=== PATIENT | male | born 2000 | race Caucasian/White ===

== ENCOUNTER 2024-03-18 15:36 | Inpatient (IN) | payer BC ==
[~2024-03-18] VITALS: Ht 177.8 cm; Wt 87.5 kg
[2024-03-18] MEDS ORDERED: MAG HYDROX/ALUMINUM HYD/SIMETH ES 30 ML SUSPENSION UDCUP PO PRN (16:30)
[2024-03-18] MEDS ORDERED: LOPERAMIDE HCL 2 MG CAPSULE PO PRN (16:30)
[2024-03-18] MEDS ORDERED: ACETAMINOPHEN 325 MG TABLET PO PRN (16:30)
[2024-03-18] MEDS ORDERED: MAGNESIUM HYDROXIDE SUSPENSION 30 ML UDCUP PO PRN (16:30)
[2024-03-18] MEDS ORDERED: HALOPERIDOL 5 MG TABLET PO PRN (16:30)
[2024-03-18 17:45] VITALS: BP 142/88; PULSE 79; RESP 18; TEMP 97.6; O2SAT 97
[2024-03-19 04:57] VITALS: BP 132/78; PULSE 82; RESP 18; TEMP 97.4; O2SAT 100
[2024-03-19 08:10] VITALS: BP 129/86; PULSE 90; RESP 16; TEMP 97.6; O2SAT 100
[2024-03-19] MEDS ORDERED: NICOTINE 14 MG/24 HOUR PATCH TD PRN (10:15)
[2024-03-19] MEDS ORDERED: ACETAMINOPHEN 325 MG TABLET PO PRN (10:15)
[2024-03-19] MEDS ORDERED: DOCUSATE SODIUM 100 MG CAPSULE PO PRN (10:15)
[2024-03-19] MEDS ORDERED: ONDANSETRON 4 MG TABLET PO PRN (10:15)
[2024-03-19] MEDS ORDERED: MAGNESIUM HYDROXIDE SUSPENSION 30 ML UDCUP PO PRN (10:15)
[2024-03-19] MEDS ORDERED: LOPERAMIDE HCL 2 MG CAPSULE PO PRN (10:15)
[2024-03-19] MEDS ORDERED: MAG HYDROX/ALUMINUM HYD/SIMETH ES 30 ML SUSPENSION UDCUP PO PRN (10:15)
[2024-03-19] MEDS ORDERED: IBUPROFEN 400 MG TABLET PO PRN (10:15)
[2024-03-19] MEDS ORDERED: ALBUTEROL SULFATE HFA 90 MCG/PUFF 8 GM INHALER IH PRN (10:15)
[2024-03-19] MEDS ORDERED: PETROLATUM,WHITE 28 GM JELLY TP PRN (10:15)
[2024-03-19] MEDS ORDERED: GuaiFENesin/D-METHORPHAN [SUGAR-FREE] 200-20MG/10 ML SYRUP UDCUP PO PRN (10:15)
[2024-03-19] MEDS ORDERED: CloNIDine HCL 0.1 MG TABLET PO PRN (10:15)
[2024-03-19] MEDS ORDERED: SERT-439 PO (12:13)
[2024-03-19] MEDS: QUEtiapine FUMARATE 100 MG TABLET PO SCH (20:26)
[2024-03-19 20:56] VITALS: BP 138/88; PULSE 85; RESP 18; TEMP 98; O2SAT 99
[2024-03-20 08:24] VITALS: BP 122/66; PULSE 95; RESP 18; TEMP 97.5; O2SAT 96
[2024-03-20 08:55] LABS: BASOPHILS % (AUTO) 0.9 % (0.0-2.0); EOSINOPHILS % (AUTO) 2.7 % (1.0-6.0); HEMATOCRIT 47.9 % (41-53); HEMOGLOBIN 16.1 g/dL (13.5-17.5); LYMPHOCYTES # (AUTO) 2.2 K/uL (1.0-4.8); LYMPHOCYTES % (AUTO) 34.2 % (22.0-44.0); MEAN CORPUSCULAR HEMOGLOBIN 31.6 pg (26.0-34.0); MEAN CORPUSCULAR HGB CONC 33.6 G/dL (31.0-37.0); MEAN CORPUSCULAR VOLUME 94 fL (80-100); MONOCYTES # (AUTO) 0.5 K/uL (0.1-1.0); NEUTROPHILS # (AUTO) 3.5 K/uL (1.8-7.7); NEUTROPHILS % (AUTO) 54.2 % (40.0-70.0); PLATELET COUNT (AUTO) 286 K/uL (150-450); RED BLOOD CELL COUNT(AUTO) 5.09 MIL/uL (4.50-5.90); RED CELL DISTRIBUTION WIDTH 12.4 % (11.5-14.5); WHITE BLOOD COUNT (AUTO) 6.5 K/uL (4.5-11.0)
[2024-03-20 09:09] LABS: HEMOGLOBIN A1C 5.2 % (3.8-5.6)
[2024-03-20 09:24] LABS: APPEARANCE,URINE TURBID (CLEAR); BILIRUBIN,URINE NEGATIVE (NEGATIVE); COLOR,URINE YELLOW (YELLOW); GLUCOSE, URINE (UA) NEGATIVE (NEGATIVE); KETONES,URINE NEGATIVE (NEGATIVE); LEUKOCYTE ESTERASE ,URINE NEGATIVE (NEGATIVE); NITRATE,URINE NEGATIVE (NEGATIVE); OCCULT BLOOD,URINE NEGATIVE (NEGATIVE); PH,URINE 7.5 (5.0-8.0); PH,URINE DRUG SCREEN 7.5 (5.0-8.0); PROTEIN,URINE TRACE mg/dL (NEGATIVE); SPECIFIC GRAVITIY, URINE 1.023 (1.003-1.030)
[2024-03-20 09:45] LABS: THYROID STIMULATING HORMONE 2.57 uIU/mL (0.36-3.74)
[2024-03-20 09:56] LABS: ALCOHOL, URINE DRUG SCREEN NEGATIVE (NEGATIVE); AMPHET/METH SCREEN,URINE NEGATIVE (NEGATIVE); BARBITURATE SCREEN, URINE NEGATIVE (NEGATIVE); BENZODIAZEPINES SCREEN,URINE NEGATIVE (NEGATIVE); CANNABINOID SCREEN,URINE NEGATIVE (NEGATIVE); COCAINE SCREEN,URINE NEGATIVE (NEGATIVE); METHADONE SCREEN, URINE NEGATIVE (NEGATIVE); OPIATE SCREEN,URINE NEGATIVE (NEGATIVE); PHENCYCLIDINE SCREEN,URINE NEGATIVE (NEGATIVE)
[2024-03-20] MEDS: SERTRALINE HCL 50 MG TABLET PO SCH (11:00)
[2024-03-20 11:56] LABS: CHOL/HDL RATIO 3.3 (4.2-7.3)
[2024-03-20 21:05] VITALS: BP 138/79; PULSE 76; RESP 18; TEMP 97.7; O2SAT 97
[2024-03-21] MEDS: ZOLPIDEM TARTRATE 10 MG TABLET PO PRN (00:55)
[2024-03-21] MEDS: LORazepam 2 MG TABLET PO PRN (00:55)
[2024-03-21 08:13] VITALS: BP 117/67; PULSE 98; RESP 16; TEMP 97.3; O2SAT 96
[2024-03-21] MEDS ORDERED: QUET100T34 PO (09:54)
[2024-03-21] MEDS ORDERED: SERT-439 PO (09:54)
[2024-03-21] MEDS ORDERED: INFLUENZA VIRUS VACCINE TVS (6MO+) 2024-25/PF 45 MCG/0.5 ML SYRINGE IM. ONE (11:30)
== END 2024-03-21 13:46 | disposition home or self-care (01) | DRG 885 ==
LOC: B2S 19:35 → UNDOADMIN 19:35 → B2S 03-19 04:36 → B2X 03-20 16:15
PROVIDERS: ADMIT Psychiatry & Neurology Psychiatry; ATTEND Psychiatry & Neurology Psychiatry
PROC: GZHZZZZ Group Psychotherapy (ICD-10-PCS; principal; 2024-03-19)
DX: F33.2 Major depressive disorder, recurrent severe without psychotic features (principal); R45.851 Suicidal ideations; F90.9 Attention-deficit hyperactivity disorder, unspecified type; F25.9 Schizoaffective disorder, unspecified; F19.959 Other psychoactive substance use, unspecified with psychoactive substance-induced psychotic disorder, unspecified; F41.9 Anxiety disorder, unspecified; G47.00 Insomnia, unspecified; F10.90 Alcohol use, unspecified, uncomplicated; Y90.9 Presence of alcohol in blood, level not specified; Z79.899 Other long term (current) drug therapy; Z87.820 Personal history of traumatic brain injury
CPT/HCPCS: 70450; 80061; 80307; 81003; 83036; 84443; 85025

== ENCOUNTER 2024-03-18 21:29 | Emergency (ER) | payer BC ==
[~2024-03-18] VITALS: Ht 177.8 cm; Wt 68.2 kg
[2024-03-18 23:29] VITALS: TEMP 98.6
[2024-03-19 00:54] LABS: COVID AG,FIA SOURCE NASAL SWAB
[2024-03-19 01:02] LABS: SARS-COV2 (COVID) ANTIGEN,FIA Negative (Negative)
[2024-03-19 01:05] LABS: BASOPHILS % (AUTO) 0.6 % (0.0-2.0); EOSINOPHILS % (AUTO) 1.8 % (1.0-6.0); HEMOGLOBIN 16.2 g/dL (13.5-17.5); LYMPHOCYTES % (AUTO) 26.4 % (22.0-44.0); MEAN CORPUSCULAR HEMOGLOBIN 32.2 pg (26.0-34.0); MEAN CORPUSCULAR HGB CONC 34.5 G/dL (31.0-37.0); MEAN CORPUSCULAR VOLUME 93 fL (80-100); MONOCYTES # (AUTO) 0.6 K/uL (0.1-1.0); MONOCYTES % (AUTO) 8.3 % (2.0-9.0); NEUTROPHILS # (AUTO) 4.8 K/uL (1.8-7.7); NEUTROPHILS % (AUTO) 62.9 % (40.0-70.0); PLATELET COUNT (AUTO) 308 K/uL (150-450); RED BLOOD CELL COUNT(AUTO) 5.04 MIL/uL (4.50-5.90); RED CELL DISTRIBUTION WIDTH 12.3 % (11.5-14.5); WHITE BLOOD COUNT (AUTO) 7.7 K/uL (4.5-11.0)
[2024-03-19 01:14] LABS: ANION GAP 8 mmol/L (8-16); CALCIUM, TOTAL 9.6 mg/dL (8.8-10.5); CARBON DIOXIDE 31 mmol/L (22-29); CHLORIDE 102 mmol/L (98-107); GLOMERULAR FILTR. RATE CALC > 60 mL/min (>60); GLUCOSE,RANDOM 100 mg/dL (70-110); POTASSIUM 4.5 mmol/L (3.5-5.1); SODIUM SERUM 141 mmol/L (136-145); UREA NITROGEN, BLOOD 21 mg/dL (7-18)
[2024-03-19 01:25] LABS: ALCOHOL, BLOOD (SERUM) < 3 mg/dL (0-10)
[2024-03-19] MEDS ORDERED: LORazepam 1 MG TABLET ONE (02:17)
[2024-03-19] MEDS: LORazepam 1 MG TABLET PO ONE (02:23)
[2024-03-19 05:55] VITALS: BP 109/76; PULSE 77; RESP 16; O2SAT 99
[2024-03-19 06:12] LABS: ALANINE AMINOTRANSFERASE 34 U/L (12-78); ALBUMIN 4.5 g/dL (3.4-5.0); ALKALINE PHOSPHATASE 109 U/L (46-116); ASPARTATE AMINOTRANSFERASE 18 U/L (15-37); BILIRUBIN,TOTAL 0.5 mg/dL (0.1-1.0); CHOL/HDL RATIO 3.2 (4.2-7.3); CHOLESTEROL 146 mg/dL (131-200); HDL CHOLESTEROL 46 mg/dL (40-60); LDL CHOL (CALC.) 82 mg/dL (0-130); THYROID STIMULATING HORMONE 1.99 uIU/mL (0.36-3.74); TOTAL PROTEIN, SERUM 7.8 g/dL (6.4-8.2); TRIGLYCERIDES 89 mg/dL (15-150)
[2024-03-19] MEDS ORDERED: SERT-439 PO (12:13)
== END 2024-03-19 04:35 ==
LOC: EMS 21:29
DX: R45.851 Suicidal ideations (principal); F32.9 Major depressive disorder, single episode, unspecified; Z20.822 Contact with and (suspected) exposure to COVID-19
CPT/HCPCS: 99285; 87426; 80061; 80053; 84443; 85025; 36415; G0480